=== PATIENT | male | born 1965 | race Caucasian/White ===

== ENCOUNTER → 2017-02-25 | Outpatient (CLI) | payer OTHER ==
[~2017-02-25] MED LIST: HYDR25TA5 PO; TNR25 PO
[2017-02-25 09:41] LABS: BASO % 1.1 %; BASO ABS # 0.07 K/uL (0-0.2); COMPLETE YES; EOS % 4.3 %; HEMATOCRIT 44.4 % (42-52); IG% 0.5 %; LYMPH % 33.8 %; LYMPH ABS # 2.13 K/uL (1.2-3.4); MEAN CELL VOLUME 88.3 fL (80-100); MEAN CORPUSCULAR HEMOGLOBIN 30.8 pg (25-34); MEAN CORPUSCULAR HGB CONC 34.9 g/dl (32-36); MONO % 9.2 %; NEUT % 51.1 %; PLATELET COUNT 238 K/uL (130-400); RED BLOOD COUNT 5.03 M/uL (4.7-6.1); WHITE BLOOD COUNT 6.31 K/uL (4.8-10.8)
[2017-02-25 10:03] LABS: ALT/SGPT 37 U/L (12-78); AST/SGOT 18 U/L (15-37); BLOOD UREA NITROGEN 14 mg/dl (7-18); BUN/CREATININE RATIO 17.7 (10-20); CALCIUM 8.9 mg/dl (8.5-10.1); CARBON DIOXIDE 32 mmol/L (21-32); CHLORIDE 106 mmol/L (98-107); CREATININE 0.81 mg/dl (0.60-1.40); GLUCOSE 123 mg/dl (70-99); POTASSIUM 3.7 mmol/L (3.5-5.1); SODIUM 141 mmol/L (136-145)
[2017-02-25 10:06] LABS: ALB/GLOB RATIO 1.3 (0.9-2); ALKALINE PHOSPHATASE 56 U/L (45-117); CHOLESTEROL 206 mg/dl (0-200); CHOLESTEROL/HDL RATIO 4.4; HDL CHOLESTEROL 47 mg/dl; LDL CHOLESTEROL CALCULATED 134 mg/dl; TRIGLYCERIDES 125 mg/dl (0-150); VERY LOW DENSITY LIPOPROT CALC 25 mg/dl
== END | disposition home or self-care (01) ==
LOC: C.LAB1850 07:41
PROVIDERS: ATTEND Physician Assistant
DX: Z00.00 Encounter for general adult medical examination without abnormal findings (principal); I10 Essential (primary) hypertension

== ENCOUNTER → 2017-08-19 | Outpatient (CLI) | payer OTHER ==
[2017-08-19 09:35] LABS: HEMATOCRIT 41.7 % (42-52); MEAN CORPUSCULAR HEMOGLOBIN 30.9 pg (25-34); MEAN PLATELET VOLUME 9.7 fL (7.4-10.4); PLATELET COUNT 202 K/uL (130-400); RED CELL DISTRIBUTION WIDTH CV 12.3 % (11.5-14.5); RED CELL DISTRIBUTION WIDTH SD 38.3 fL (36.4-46.3); WHITE BLOOD COUNT 7.19 K/uL (4.8-10.8)
[2017-08-19 10:23] LABS: ALBUMIN 3.8 gm/dl (3.4-5.0); ALT/SGPT 27 U/L (12-78); AST/SGOT 11 U/L (15-37); BLOOD UREA NITROGEN 14 mg/dl (7-18); CALCIUM 8.8 mg/dl (8.5-10.1); CARBON DIOXIDE 29 mmol/L (21-32); CHOLESTEROL 184 mg/dl (0-200); CREATININE 0.69 mg/dl (0.60-1.40); GLUCOSE 112 mg/dl (70-99); POTASSIUM 3.3 mmol/L (3.5-5.1); SODIUM 139 mmol/L (136-145)
[2017-08-19 10:24] LABS: ALKALINE PHOSPHATASE 54 U/L (45-117); LDL CHOLESTEROL CALCULATED 115 mg/dl; TOTAL PROTEIN 6.5 gm/dl (6.4-8.2)
[2017-08-19 10:36] LABS: HEMOGLOBIN A1C 5.3 % (4.5-5.6)
== END | disposition home or self-care (01) ==
LOC: C.LAB1850 08:05
PROVIDERS: ATTEND Internal Medicine
DX: Z00.00 Encounter for general adult medical examination without abnormal findings (principal); I10 Essential (primary) hypertension; R73.03 Prediabetes

== ENCOUNTER → 2017-10-25 | Day surgery (SDC) | payer OTHER ==
[2017-10-13 08:46] VITALS: Ht 182.9 cm; Wt 102.3 kg
[~2017-10-25] VITALS: Ht 182.9 cm; Wt 102.3 kg
[~2017-10-25] MED LIST changes: +LIDOCAINE HCL 2% 2 ML VIAL (20MG/ML) ONE; +MIDAZOLAM HCL 1 MG/ML 2ML VIAL ONE; +ONDANSETRON INJ 2 MG/ML 2 ML VIAL ONE; +PROPOFOL IV EMULSION 10 MG/ML 20 ML VIAL ONE; +SODIUM CHLORIDE 0.9% 500ML 500 ML IV ONE
--- NOTE | 2017-10-25 08:36 | Endo History and Physical ---
History & Physical Date of Service: October 25, 2017. Chief Complaint: Screening, Hx of Polyps Referring Physician: Radha Pearce History of Present Illness 52 yo CM who presents for colonoscopy secondary to history of colon polyps. Past Medical History Hypertension Past Surgical History Hx Cardiac Surgery: No Hx Internal Defibrillator: No Hx Pacemaker: No Hx Abdominal Surgery: No Hx of Implantable Prosthesis: No Hx Cancer Surgery: No Hx Thoracic Surgery: No Hx Orthopedic: No Hx Urinary Tract Surgery: No Social History Smoking Status: Former Smoker Hx Substance Use: No Hx Alcohol Use: Yes (A FEW BEERS A WEEK) Allergies Coded Allergies: No Known Allergies (Unverified , 10/25/17) Current Medications Reported Home Medications Medications Dose Route/Sig Max Daily Dose Days Date Category Hydrochlorothiazide 25 Mg Tab 25 Mg PO DAILY 11/01/14 Reported Atenolol 25 Mg Tab 25 Mg PO DAILY 11/01/14 Reported Vital Signs Weight (Kilograms): 102.27 Height (Feet): 6 Height (Inches): 0 Date Time Temp Pulse Resp B/P (MAP) Pulse Ox O2 Delivery O2 Flow Rate FiO2 10/25/17 08:09 36.7 76 20 161/112 (128) 97 Room Air Physical Exam General Appearance: WD/WN, no apparent distress Respiratory/Chest: Auscultation: breath sounds normal Cardiovascular: Heart Auscultation: RRR Abdomen: Bowel Sounds: normal Inspection & Palpation: soft, non-distended, no tenderness, guarding & rebound Assessment and Plan Assessment: 52 yo CM who presents for colonoscopy secondary to history of colon polyps. Plan: Proceed with colonoscopy.
--- NOTE | 2017-10-25 08:59 | GI REPORT ---
Patient Name: Zachary Ramos Procedure Date: 10/25/2017 8:42 AM Date of : 1965 Admit Type: Outpatient Age: 52 Gender: Male Attending MD: Drew Hearn DO Procedure: Colonoscopy Providers: Drew Hearn DO Referring MD: Radha Pearce Indications: High risk colon cancer surveillance: Personal history of colonic polyps Medicines: Monitored Anesthesia Care Complications: No immediate complications. Estimated Blood Loss: Estimated blood loss: none. Procedure: Pre-Anesthesia Assessment: - Prior to the procedure, a History and Physical was performed, and patient medications and allergies were reviewed. The patient's tolerance of previous anesthesia was also reviewed. The risks and benefits of the procedure and the sedation options and risks were discussed with the patient. All questions were answered, and informed consent was obtained. Prior Anticoagulants: The patient has taken no previous anticoagulant or antiplatelet agents. ASA Grade Assessment: II - A patient with mild systemic disease. After reviewing the risks and benefits, the patient was deemed in satisfactory condition to undergo the procedure. After I obtained informed consent, the scope was passed under direct vision. Throughout the procedure, the patient's blood pressure, pulse, and oxygen saturations were monitored continuously. The Scope was introduced through the anus and advanced to the terminal ileum. The patient tolerated the procedure well. The quality of the bowel preparation was good. The quality of the bowel preparation was good. The terminal ileum, ileocecal valve, appendiceal orifice, and rectum were photographed. Findings: The perianal and digital rectal examinations were normal. Non-bleeding internal hemorrhoids were found during retroflexion. The hemorrhoids were small. Impression: - Non-bleeding internal hemorrhoids. - No specimens collected. Recommendation: - Resume previous diet. - Continue present medications. - Repeat colonoscopy for surveillance based on pathology results. - Return to primary care physician as previously scheduled. Drew Hearn DO 10/25/2017 8:58:29 AM This report has been signed electronically. Note Initiated On: 10/25/2017 8:42 AM Number of Addenda: 1 I attest to the content of the Intraoperative Record and orders documented therein, exceptions below Addendum Number: 1 Addendum Date: 10/25/2017 9:01:32 AM No specimens were collected during this procedure, and therefore, no pathology is pending. Repeat colonoscopy in 5 years, due to history of colon polyps. Drew Hearn, DO 10/25/2017 9:02:28 AM This report has been signed electronically. {[id number]}
--- NOTE | 2017-10-25 09:01 | Discharge Instructions ---
Endoscopy Patient Instructions Date / Procedure(s) Performed October 25, 2017. Colonoscopy Allergy Information Coded Allergies: No Known Allergies (Unverified , 10/25/17) Discharge Date / Findings October 25, 2017. Internal hemorrhoids Medication Instructions OK to resume all medications today as prescribed Reported Home Medications Medications Dose Route/Sig Max Daily Dose Days Date Category Hydrochlorothiazide 25 Mg Tab 25 Mg PO DAILY 11/01/14 Reported Atenolol 25 Mg Tab 25 Mg PO DAILY 11/01/14 Reported Provider Instructions Activity Restrictions - No exercising or heavy lifting for 24 hours. - Do not drink alcohol the day of the procedure. - Do not drive a car or operate machinery until the day after the procedure. - Do not make any important decisions or sign important papers in 24 hours after the procedure. Following Day: - Return to full activity which may include returning to work/school. Diet Start your diet with liquids and light foods (jello, soup, juice, toast). Then eat your usual diet if not nauseated. Treatment For Common After Affects For mild abdominal pain, bloating, or excessive gas: - Rest - Eat lightly - Lie on right side Follow-Up Information Follow-up with Radha Pearce as scheduled Anesthesia Information What You Should Know You have had a procedure that required some medicine to reduce anxiety and discomfort. This treatment is called moderate sedation. After receiving the treatment, you may be sleepy, but you will be able to breathe on your own. The effects of the treatment may last for several hours. Follow these instructions along with Activity/Diet recommendations noted above: * Do NOT do anything where dizziness or clumsiness would be dangerous. * Rest quietly at home today, then you can be up and about tomorrow. * Have a responsible person stay with you the rest of today. * You may have had an I.V. today. If so, you may take the dressing off later today. Recommendations Call your doctor if: * Trouble breathing * Continuous vomiting for more than 24 hours * Temperature above 101 degrees * Severe abdominal pain or bloating * Pain not relieved by pain medicine ordered * There is increased drainage or redness from any incision * A large amount of rectal bleeding greater than 2-3 tablespoons. (If you had a polyp/s removed or have hemorrhoids, a small amount of blood - from the rectum is to be expected.) * You have any unanswered questions or concerns. IN THE EVENT OF A SERIOUS EMERGENCY, GO TO THE NEAREST EMERGENCY ROOM Your discharge instructions were prepared by provider Drew Hearn. Patient Instructions Signature Page Zachary Ramos Patient (or Guardian) Signature/Date: I have read and understand the instructions given to me by my caregivers. Caregiver/RN/Doctor Signature/Date: The above-named patient and/or guardian has received patient instructions on this date. + Original Patient Signature Page (only) stays with chart. Please make copy for patient.
--- NOTE | 2017-10-25 09:12 | Anesthesiology Progress Note ---
Anesthesia Post Op Note Date & Time October 25, 2017 at 09:12 Vital Signs Pain Intensity: 0 Vital Signs Past 12 Hours Date Time Temp Pulse Resp B/P (MAP) Pulse Ox O2 Delivery O2 Flow Rate FiO2 10/25/17 09:00 36.7 0 16 135/76 (95) 96 Room Air 10/25/17 08:09 36.7 76 20 161/112 (128) 97 Room Air Notes Mental Status: alert / awake / arousable, participated in evaluation Pt Amnestic to Procedure: Yes Nausea / Vomiting: adequately controlled Pain: adequately controlled Airway Patency, RR, SpO2: stable & adequate BP & HR: stable & adequate Hydration State: stable & adequate Anesthetic Complications: no major complications apparent
[2017-10-25 09:32] VITALS: BP 121/92; PULSE 63; O2SAT 98
== END | disposition home or self-care (01) ==
LOC: C.GI 07:37
PROVIDERS: ATTEND Internal Medicine
DX: Z12.11 Encounter for screening for malignant neoplasm of colon (principal); K64.8 Other hemorrhoids; I10 Essential (primary) hypertension; Z86.010 Personal history of colon polyps; Z87.891 Personal history of nicotine dependence

== ENCOUNTER 2019-08-27 22:54 | Observation (INO) ==
--- NOTE | 2019-08-27 23:18 | Emergency Department Note ---
ED Provider Note Name: SHANNAN KRISHNA Age: 54 Sex: M Arrives Via: Walk-In Informant: Patient, Pt Chart ED Provider: Kelton Garcia MD Chief Complaint: Shortness of breath Impression: Acute Congestive Heart Failure Elevated Troponin Medical Decision Makin yr old male with history HTN and DLP with worsening shortness of breath on exertion and with laying flat. Exam with relatively clear lungs though irregular cardiac rate found to be bigemeny with frequent PVCs. HTN on arrival as well. Already trying outpatient Lasix without improvement. No cardiac history. Did have viral illness in June. CXR with considerable cardiomegaly with developing pulmonary edema though patient in no distress and not hypoxic while sitting up in bed. Labs with positive trop though not severely elevated and no recent chest pain. Given ASA 324mg PO and noted BP trending down while here. Hospitalist consulted and will defer further anticoagulation and management to them given patient stability at this time. Patient comfortable with plan. While can't rule out ACS, and he may just have HTN heart failure, he has recently had viral illness thus post viral myocarditis a possibility. Prior Medical Record and Triage/Nursing Notes reviewed by Me Patient record and recent visit notes Differentials:Reactive airway disease, pneumonia, pneumothorax, COPD, CHF, infections, cardiac ischemia, pulmonary embolism, musculoskeletal, gastrointestinal, as well as other pathologies. Vital Signs: reviewed and remarkable for HTN Interventions: saline lock, asa 324mg PO Labs:Reviewed and remarkable for +troponin Imaging:X ray results are stated below per my interpretation: Chest: 1 view: Cardiomegaly with developing pulmonary edema EKG:Per My Interpretation: Indication Shortness of breath: Bigemeny 91 bpm with qtc 546, multiple PVCs, no clear ischemia. No previous for comparison Cardiac/Tele Monitoring: Cardiac Monitoring: An Order was placed for continuous cardiac monitoring. The monitor shows a rate of 90 with a bigemny rhythm. Consults:Dr Quiana MAGANA Hospitalist Plan: Disposition:Hospitalization. Condition: Good Blood pressure:Elevated - Referred to Hospitalist History of Present Illness:54 / M arrives for evaluation of shortness of breath. Patient notes for last few weeks worsening shortness of breath. The last week has been increasingly difficult. He notes that with exertion he becomes quite dyspneic and furthermore feels like he can not breath while laying flat. Sitting up and relaxing has resolution of symptoms. He notes associated abdominal fullness and increased belching the last few days as well. Denies any chest pain, fevers, syncope, headache, neck pain, rashes, leg swelling, calf pain, travel, abdominal pain, nausea, vomiting, nor other symptoms. Was seen by PCP 2 days ago and started on Lasix without improvement in symptoms. No history of cardiac disease in him or parents though grandfather with CAD. Patient with RADHA, DLP, HTN. ROS: See above HPI for pertinent positives & negatives. A total of 10 systems reviewed and were otherwise negative. 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 EYES: No scleral icterus, unremarkable pupils. ENT: Mucous membranes moist, no nasal congestion. NECK: No masses appreciated, nomeningismus, trachea is midline. RESPIRATORY: No dyspnea. Clear to auscultation and equal bilaterally. No wheeze, no rhonchi. CARDIOVASCULAR: Regular rate and rhythm.No murmurs, rubs, gallops appreciated. GASTROINTESTINAL: Abdomen soft, non-tender, no peritonitis.Bowel sounds positive.No masses appreciated. BACK: No midline tenderness, no CVA tenderness EXTREMITIES: Normal motion all extremities, no cyanosis, no edema. NEUROLOGIC: Alert and oriented, no acute motor or sensory deficits, no focal weakness, cranial nerves grossly intact. SKIN: No rash, no jaundice, no diaphoresis. PSYCH: Appropriate GCS: 15 ED Course: Times/Reassessments: Stable, felling well while in bed without symptoms. 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 Feels Safe at Home: Yes Smoking Status: Never smoker Hx Alcohol Use: Yes Dental Care, Regularly: Yes Results & Data Vital Signs Vital Signs - 24 hr 08/27/19 22:59 08/27/19 23:19 08/27/19 23:55 Temperature 36.6 C Temperature Source Oral Pulse Rate 94 H Pulse Rate [Bilateral Apical] 93 H 73 Respiratory Rate 18 20 18 Respiratory Effort / Characteristics Non-Labored Respiratory Depth Normal Blood Pressure 189/132 H Blood Pressure [Left Arm] 151/106 H 154/113 H Blood Pressure Mean 151 Blood Pressure Mean [Left Arm] 121 126 Pulse Oximetry 95 96 95 Oxygen Delivery Method Room Air Room Air Fraction of Inspired Oxygen 96 Sepsis Recent Fever Within 48 Hours No Sepsis New/Unexplained Change in Mental Status No Sepsis Action Taken by Nursing No Action Required 08/28/19 00:16 Temperature Temperature Source Pulse Rate Pulse Rate [Bilateral Apical] 90 Respiratory Rate 20 Respiratory Effort / Characteristics Respiratory Depth Blood Pressure Blood Pressure [Left Arm] 157/116 H Blood Pressure Mean Blood Pressure Mean [Left Arm] 129 Pulse Oximetry 93 Oxygen Delivery Method Room Air Fraction of Inspired Oxygen Sepsis Recent Fever Within 48 Hours Sepsis New/Unexplained Change in Mental Status Sepsis Action Taken by Nursing Laboratory Data Result diagrams: 08/27/19 23:10 08/27/19 23:10 Lab Results 08/27/19 08/27/19 08/27/19 Range/Units 23:10 23:10 23:10 WBC 8.91 (4.8-10.8) K/uL RBC 5.44 (4.7-6.1) M/uL Hgb 16.5 (14.0-18.0) g/dL Hct 48.4 (42-52) % MCV 89.0 (80-100) fL MCH 30.3 (25-34) pg MCHC 34.1 (32-36) g/dL RDW Std Deviation 42.0 (36.4-46.3) fL RDW Coeff of Jonathan 13.0 (11.5-14.5) % Plt Count 268 (130-400) K/uL MPV 10.4 (7.4-10.4) fL Immature Gran % (Auto) 0.2 % Neut % (Auto) 53.2 % Lymph % (Auto) 34.3 % [place] % (Auto) 9.8 % Eos % (Auto) 2.2 % Baso % (Auto) 0.3 % Immature Gran # (Auto) 0.02 (0.00-0.02) K/uL Neut # (Auto) 4.73 (1.4-6.5) K/uL Lymph # (Auto) 3.06 (1.2-3.4) K/uL [place] # (Auto) 0.87 H (0.11-0.59) K/uL Eos # (Auto) 0.20 (0-0.5) K/uL Baso # (Auto) 0.03 (0-0.2) K/uL PT 12.5 H (9.0-12.0) Seconds INR 1.2 H (0.9-1.1) APTT 27.0 (21.0-31.0) Seconds PTT Ratio 1.0 Sodium 141 (136-145) mmol/L Potassium 3.8 (3.5-5.1) mmol/L Chloride 109 H (98-107) mmol/L Carbon Dioxide 25 (21-32) mmol/L Anion Gap 7.0 (3-11) BUN 17 (7-18) mg/dl Creatinine 0.94 (0.6-1.4) mg/dl Est Cr Clr Drug Dosing 106.8 ml/min Est GFR ( Amer) 105.4 Est GFR (Non-Af Amer) 90.9 BUN/Creatinine Ratio 18.5 (10-20) Glucose 119 H (70-99) mg/dl Calcium 9.3 (8.5-10.1) mg/dl Magnesium 2.0 (1.8-2.4) mg/dl Total Bilirubin 1.3 H (0.2-1) mg/dl Direct Bilirubin 0.3 H (0-0.2) mg/dl AST 32 (15-37) U/L ALT 52 (12-78) U/L Alkaline Phosphatase 43 L (45-117) U/L Troponin I 0.050 H* (0-0.045) ng/ml NT-Pro-B Natriuret Pep 3646 H (0-900) pg/ml Total Protein 6.6 (6.4-8.2) gm/dl Albumin 3.8 (3.4-5.0) gm/dl Administered Medications Discontinued Medications Aspirin (Aspirin) 324 mg PO NOW STA Stop: 08/28/19 00:12 Last Admin: 08/28/19 00:16 Dose: 324 mg Documented by: [id number] Discharge Plan Visit Data Chief Complaint: Shortness of Breath/Dyspnea Stated Complaint: HARD TIME BREATHING WHEN LAYING DOWN ED Provider: Kelton Garcia Discharge Problem: Acute congestive heart failure, Elevated troponin Forms Stand Alone Forms: My [facility] Prescriptions Prescriptions: No Action omeprazole 20 mg capsule,delayed release(DR/EC) 20 mg PO DAILY Qty: 30 RF: 1 albuterol sulfate 90 mcg/actuation HFA aerosol inhaler 1 puffs INH QID PRN (Reason: shortness of breath or wheezing) Qty: 18 RF: 0 hydrochlorothiazide 25 mg tablet 25 mg PO DAILY Qty: 90 RF: 1 Hold Instructions: On Lasix for 5 days furosemide 40 mg tablet 40 mg PO DAILY Qty: 5 RF: 0 atenolol 25 mg tablet 25 mg PO DAILY Qty: 30 RF: 0 psyllium Powder 1 tsp PO DAILY RF: 0 Discharge Problem: Acute congestive heart failure Qualifiers: Heart failure type: systolic Qualified Code(s): I50.21 - Acute systolic (con gestive) heart failure
[2019-08-27 23:31] LABS: Basophils # (auto) 0.03 K/uL (0-0.2); Basophils % (auto) 0.3 %; Eosinophils % (auto) 2.2 %; Hematocrit (blood only) 48.4 % (42-52); Hemoglobin 16.5 g/dL (14.0-18.0); Immature Granulocytes # (auto) 0.02 K/uL (0.00-0.02); Immature Granulocytes % (auto) 0.2 %; Lymphocytes # (auto) 3.06 K/uL (1.2-3.4); Lymphocytes % (auto) 34.3 %; Mean Corpuscular Hemoglobin 30.3 pg (25-34); Mean Corpuscular Hgb Conc 34.1 g/dL (32-36); Mean Platelet Volume 10.4 fL (7.4-10.4); Monocytes # (auto) 0.87 K/uL (0.11-0.59); Monocytes % (auto) 9.8 %; Neutrophils # (auto) 4.73 K/uL (1.4-6.5); Neutrophils % (auto) 53.2 %; Platelet Count 268 K/uL (130-400); Red Blood Count 5.44 M/uL (4.7-6.1); White Blood Count 8.91 K/uL (4.8-10.8)
[2019-08-27 23:53] LABS: Albumin Level 3.8 gm/dl (3.4-5.0); BUN Creatinine Ratio 18.5 (10-20); Bilirubin Direct 0.3 mg/dl (0-0.2); Calcium 9.3 mg/dl (8.5-10.1); Creatinine Clr Calc Pharmacy 106.8 ml/min; Est GFR (African American) 105.4; Est GFR (Non-African American) 90.9; Potassium 3.8 mmol/L (3.5-5.1)
[2019-08-28 00:06] LABS: Bilirubin,Total 1.3 mg/dl (0.2-1); Total Protein 6.6 gm/dl (6.4-8.2); Troponin I 0.05 ng/ml (0-0.045)
[2019-08-28] MEDS ORDERED: ASPIRIN CHEW 324 MG PO STA (00:11)
[2019-08-28 00:27] LABS: INR 1.2 (0.9-1.1); Prothrombin Time 12.5 Seconds (9.0-12.0)
--- NOTE | 2019-08-28 01:18 | History & Physical Report ---
Date of Service August 28, 2019 Assessment & Plan (1) SOB (shortness of breath): 54 yo M with PMH dyslipidemia, HTN, likely RADHA, GERD presents with concerns of worsening SOB and failed outpt tx with PO Lasix found to be mildly volume overloaded on CXR. SOB likely 2/2 Acute CHF -CXR: Cardiomegaly w/ mild interstitial pulmonary edema and trace bilateral pleural effusions. Compared to 08/24, appears mildly worse. -BNP 3646 on admission -initial trop 0.05. Likely 2/2 type II OK, will cont trend x2 -failed outpt tx with Lasix 40mg -will give spot IV Lasix 40 mg x1. Can adjust dosage based on clinical exam and ECHO results moving forward -ECHO Pending -supplemental O2 as needed. Has been sating well on RA -daily weights, measure I's/O's HTN -cont home atenolol. Holding HCTZ for now as we monitor BP moving forward with Lasix History of irregular heartbeat/abnormal EKG -EKG on admission concerning for bigeminy, multiple PVCs -has followed with Dr. Henriquez in the past -Stress ECHO from 2003 negative for exercise-induced myocardial ischemia -PCP made referral to cardiology as outpt, but given pt is admitted a Cardiology consult appreciated ?RADHA -h/o Snoring -PCP ordered Home sleep study and Sleep medicine referral made FEN/GI: HH Diet DVT Prophylaxis: Lovenox SQ Conditional Code: DNI only Dispo: Med Tele History of Present Illness Chief Complaint: sob, FITCH Primary Care Provider: BRIGITTE Queen 54 yo M with PMH dyslipidemia, HTN, likely RADHA, GERD presents to [facility] with concerns of worsening SOB. Initially started a couple of weeks ago, but worse this past week. Last episode of SOB back in July 2019 and CXR revealed cardiomegaly, atelectasis, and developing CHF. 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 Sxs improved quickly with with steroid taper, and thus SOB was attributed more so to chemical inhalation. PCP visit on 08/25/19 for increased SOB with exertion and being unable to sleep flat at night that required him to sleep in recliner. Sometimes waking up gasping and SOB. CXR at this visit indicated mild interstitial pulmonary edema and trace bilateral pleural effusions. Decision was made to start pt on Lasix 40mg daily, which he took for 2 days. Pt notes no real increase in urine output despite starting Lasix and ongoing SOB that is not improved. Tonight, he continued to have difficulty sleeping so he decided to come into ER. Associated feeling of abdominal fullness and belching, but pt otherwise denies CP, diaphoresis, palpitations, syncope or near syncope, edema, cough, fever, chills, N/V/D, recent travel, lightheadedness/dizziness, urinary sxs . Pt notes his diet is not great with a lot of red meats and potatoes, does not really watch his sodium. Pt with no other acute concerns or complaints. CXR: Cardiomegaly w/ mild interstitial pulmonary edema and trace bilateral pleural effusions. Compared to 08/24, appears mildly worse. EKG: Bigemeny, PVCs. No acute ischemia Pertinent Labs: Trop 0.05, BNP 3646 ER Course: ASA 324 mg Family Hx: GF, Brother, Sister with 'heart disease' Social Hx: Denies tobacco use. Alcohol- ~10 beers/week. No illicit drug use Allergies Allergy/AdvReac Type Severity Reaction Status Date / Time No Known Allergies Allergy Unverified 08/27/19 23:35 Home Medications Home Medications Medication Instructions Recorded Confirmed Type omeprazole 20 mg capsule,delayed 20 mg PO DAILY #30 cap 07/24/19 08/29/19 Rx release psyllium 1 tsp PO DAILY 08/27/19 08/29/19 History lisinopril [Zestril] 5 mg PO QAM #30 tab 08/28/19 08/29/19 Rx metoprolol succinate 50 mg PO QAM #30 tab 08/28/19 08/29/19 Rx furosemide 40 mg tablet 40 mg PO DAILY PRN #30 tab 08/29/19 Rx Past Med/Surg History Medical History (Updated 08/29/19 @ 00:02 by Background Ariane) Dyslipidemia (Chronic) GERD (gastroesophageal reflux disease) Hypertension (Chronic) Surgical History No history of previous surgery Family History Brother Diabetes Other Colorectal cancer Denies family history of Ovarian cancer Prostate cancer Myocardial infarction Breast cancer Social History Preferred Language: Omani Communication Ability: Effective Visual Impairment: No Limitations Hearing Ability: Normal Beliefs That Will Affect Care: None marital status: Current Living Situation: Spouse 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 occupational status: 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 Feels Safe at Home: Yes Smoking Status: Never smoker Hx Alcohol Use: Yes Alcohol type: beer Hx Substance Use: No Dental Care, Regularly: Yes Review of Systems Review of Systems: All systems reviewed & are unremarkable except as noted in HPI & below Physical Exam Constitutional: WD/WN, vitals as above no acute distress Eyes: PERRL, conjunctivae normal, anicteric sclerae ENMT: external ear and nose normal, oropharynx normal Respiratory: normal respiratory effort; no respiratory distress and no labored breathing Lungs grossly CTAB with very slight crackles in mid-lower lung zones Cardiovascular: RRR, no murmur, no edema Gastrointestinal (Abdomen): normal bowel sounds, soft, nontender, no hepatosplenomegaly Skin: no rashes, warm and dry Psychiatric: A+Ox3, euthymic affect Results & Data Vital Signs (Past 12 Hours) Vital Signs Temp Pulse Pulse Resp BP BP Pulse Ox 08/28/19 00:16 90 20 157/116 H 93 08/27/19 23:55 73 18 154/113 H 95 08/27/19 23:19 93 H 20 151/106 H 96 08/27/19 22:59 36.6 C 94 H 18 189/132 H 95 Laboratory Results Laboratory Results - last 24 hr 08/27/19 08/27/19 08/27/19 23:10 23:10 23:10 WBC 8.91 RBC 5.44 Hgb 16.5 Hct 48.4 MCV 89.0 MCH 30.3 MCHC 34.1 RDW Std Deviation 42.0 RDW Coeff of Jonathan 13.0 Plt Count 268 MPV 10.4 Immature Gran % (Auto) 0.2 Neut % (Auto) 53.2 Lymph % (Auto) 34.3 [place] % (Auto) 9.8 Eos % (Auto) 2.2 Baso % (Auto) 0.3 Immature Gran # (Auto) 0.02 Neut # (Auto) 4.73 Lymph # (Auto) 3.06 [place] # (Auto) 0.87 H Eos # (Auto) 0.20 Baso # (Auto) 0.03 PT 12.5 H INR 1.2 H APTT 27.0 PTT Ratio 1.0 Sodium 141 Potassium 3.8 Chloride 109 H Carbon Dioxide 25 Anion Gap 7.0 BUN 17 Creatinine 0.94 Est Cr Clr Drug Dosing 106.8 Est GFR ( Amer) 105.4 Est GFR (Non-Af Amer) 90.9 BUN/Creatinine Ratio 18.5 Glucose 119 H Calcium 9.3 Magnesium 2.0 Total Bilirubin 1.3 H Direct Bilirubin 0.3 H AST 32 ALT 52 Alkaline Phosphatase 43 L Troponin I 0.050 H* NT-Pro-B Natriuret Pep 3646 H Total Protein 6.6 Albumin 3.8 Supervising Physician Co-Signing Physician Notes Attending addendum: I have physically seen this patient, have supervised the medical residents activities, and agree with the H&P unless as otherwise noted. Assessment and Plan: NSTEMI/CHF exacerbation/hypertension/cardiomyopathy- The patient will be admitted to telemetry for serial cardiac enzymes, serial EKG's, cardiac rhythm monitoring and a 2-D echocardiogram with Dopplers. Likely type II OK supply demand mismatch. Hold oral Lasix, and give Lasix 40 mg IV x1 tonight. Nasal cannula oxygen, titrate to keep pulse ox 94 to 95%. Continue atenolol. Hold HCTZ Serial BMP and magnesium levels. Consult cardiology. Remainder of orders and notations as noted. Resident Activity Tracking Resident Involvement: Resident Care Provided Care Provided: Adult [facility]
[2019-08-28] MEDS ORDERED: FUROSEMIDE 40 MG/4 ML VIAL IV STA (01:26)
[2019-08-28] MEDS ORDERED: ALBUTEROL HFA 8 GM INHALER INH PRN (02:53)
[2019-08-28] MEDS ORDERED: NITROGLYCERIN SL 0.4 MG/TAB TAB SL PRN (02:53)
[2019-08-28] MEDS ORDERED: ACETAMINOPHEN 325 MG TAB PO PRN (02:53)
[2019-08-28] MEDS ORDERED: ALUMINUM/MAGNESIUM SUSP 30 ML UDC PO PRN (02:53)
[2019-08-28 06:21] LABS: Basophils # (auto) 0.05 K/uL (0-0.2); Basophils % (auto) 0.6 %; Eosinophils # (auto) 0.14 K/uL (0-0.5); Eosinophils % (auto) 1.6 %; Hematocrit (blood only) 47.7 % (42-52); Hemoglobin 16.1 g/dL (14.0-18.0); Immature Granulocytes # (auto) 0.02 K/uL (0.00-0.02); Immature Granulocytes % (auto) 0.2 %; Lymphocytes # (auto) 2.57 K/uL (1.2-3.4); Lymphocytes % (auto) 28.5 %; Mean Corpuscular Hemoglobin 29.8 pg (25-34); Mean Corpuscular Hgb Conc 33.8 g/dL (32-36); Mean Corpuscular Volume 88.3 fL (80-100); Mean Platelet Volume 10.4 fL (7.4-10.4); Monocytes # (auto) 0.99 K/uL (0.11-0.59); Neutrophils # (auto) 5.26 K/uL (1.4-6.5); Neutrophils % (auto) 58.1 %; Platelet Count 254 K/uL (130-400); RDW Standard Deviation 41.7 fL (36.4-46.3); White Blood Count 9.03 K/uL (4.8-10.8)
--- NOTE | 2019-08-28 07:01 | XRay Report ---
XR chest 1V portable CLINICAL HISTORY: 54 years-old Male presenting with shortness of breath. TECHNIQUE: Portable upright AP view of the chest was obtained. COMPARISON: 08/25/2019. FINDINGS: Cardiopericardial silhouette moderately enlarged. Pulmonary vasculature mildly prominent. Stable to s light interval decrease in interstitial prominence. Trace pleural effusions may be present. Minimal b ibasilar opacity. No pneumothorax. Degenerative changes of the thoracic spine. Upper abdomen normal. IMPRESSION: 1. Cardiomegaly with mild volume overload. Decreasing congestive change. 2. Possible trace bilateral pleural effusions and minimal bibasilar atelectasis. ACT 112: Negative or not required by law. Electronically signed by: Maksim Flanagan M.D. 08/28/2019 6:59 AM
[2019-08-28 07:02] LABS: BUN Creatinine Ratio 16.1 (10-20); Calcium 8.7 mg/dl (8.5-10.1); Creatinine Clr Calc Pharmacy 110.5 ml/min; Est GFR (African American) 109.6; Est GFR (Non-African American) 94.5; Potassium 3.8 mmol/L (3.5-5.1)
[2019-08-28 07:17] LABS: Troponin I 0.051 ng/ml (0-0.045)
[2019-08-28] MEDS ORDERED: ENOXAPARIN INJ 40 MG/0.4 ML SYR SQ SCH (09:00)
[2019-08-28] MEDS ORDERED: ATENOLOL 25 MG TABLET PO SCH (09:00)
[2019-08-28] MEDS ORDERED: PANTOprazole 40 MG TAB PO SCH (09:00)
[2019-08-28] MEDS ORDERED: PSYLLIUM 58.6% POWDER PACKET PO SCH (09:00)
--- NOTE | 2019-08-28 10:18 | XCELERA ---
[id number] \\[id number]\[id number]_[id number]}___[id number]
--- NOTE | 2019-08-28 10:39 | Cardiology Consultation ---
Date of Consultation August 28, 2019 Assessment & Plan (1) Acute congestive heart failure: His symptoms resolution are consistent with pulmonary edema. It is very likely that his cough and breathing difficulty earlier this month were also related to pulmonary vascular congestion. He had elevated N terminal proBNP and evidence of edema on x-ray. He has a dilated cardiomyopathy with both reduced systolic and diastolic function. He responded well to a single dose of intravenous diuretic. His lung examination is benign currently in his symptoms have resolved. He will require continued use of diuretic on an outpatient basis as well as intensification of his medical therapy for his reduced LV function. (2) Elevated troponin: Current elevation in his biomarkers are more consistent with his cardiomyopathy rather than acute coronary syndrome. He has not had symptoms or objective findings of an acute coronary syndrome. (3) Cardiomyopathy: Unknown etiology. This is likely responsible for his recent symptoms. He does not have symptoms of chest pain or angina with activity which makes coronary disease a less likely etiology. However, in his demographic this is still the most likely cause reduced systolic function. He could have occult sleep apnea. It could be related to his frequent ventricular ectopy. (4) Hypertension: He likely has suboptimal control of his blood pressure. He checks it regularly and would likely benefit from intensification of his medical regimen. This will be accomplished primarily to address his cardiomyopathy. We will switch his atenolol to metoprolol succinate and add an LISA-inhibitor. He will be continued on furosemide and his hydrochlorothiazide will be discontinued. (5) Left bundle branch block: He had 1 EKG performed on 07/24/2019. There is no other EKG in his record. He had left bundle branch block at that time. Occasionally this is responsible for reduced LV function by think this is most likely related to an underlying cardiomyopathy. 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 In fact, he states that he was previously on quinidine as a child. He did have frequent PVCs on his presenting EKG. This could be the etiology of his cardiomyopathy if he has frequent PVCs. Certainly frequencies over 20 percent a 24 hour. Have been associated with reduced LV function. Hopefully with intensification of his medical therapy we can see some reduction in his PVCs. He will undergo an ischemic evaluation at some point as well. Catheter based therapy remains an option this is felt to be a possible ideology. Unfortunately, the morphology of his PVCs does not suggest an outflow tract source and is more consistent with an apical source of PVCs. History of Present Illness Reason for Consultation: Dyspnea Requesting Physician: Refugio Attending Physician: Digna Blackwell MD History of Present Illness The patient is a 54-year-old gentleman without a known history of significant cardiac disease who has been experiencing symptoms dyspnea for several weeks. 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 He was evaluated that time and placed on steroid medication as well as inhalers. Patient did report some transient improvement in his symptoms but later had worsening of both a cough and breathing difficulty. His shortness of breath was manifest by dyspnea on exertion as well as symptoms of orthopnea and paroxysmal nocturnal dyspnea. Patient states that he has been sleeping somewhat upright for several years for comfort reasons, but lately has been waking up suddenly with breathing trouble. This appears to be fairly random in nature. Based on an outpatient evaluation including a chest x-ray he was prescribed a diuretic. However this diuretic failed to improve his symptoms and he presented to the emergency room for an evaluation. At our facility he was administered intravenous furosemide with improvement in his symptoms. The patient states that he had some abdominal fullness which appears to have improved this morning. He did not report peripheral edema. He has not had dizziness or lightheadedness. He has not endorse any symptoms of syncope. He has no symptoms of chest discomfort or chest tightness at rest or with exertion. He is able perform mild to moderate activity currently limited by dyspnea. He has been told that he has an irregularity in his heartbeat but is not aware of any palpitations. He does not follow low-sodium diet. He does monitor his blood pressure regularly. He states that generally speaking his systolic pressure is 120-130. He has not noticed any extreme elevations recently. It seems he was tried on higher doses of atenolol in the past with some side effects resulting in a dose reduction. Allergies Allergy/AdvReac Type Severity Reaction Status Date / Time No Known Allergies Allergy Unverified 08/27/19 23:35 Home Medications Home Medications Medication Instructions Recorded Confirmed Type omeprazole 20 mg capsule,delayed 20 mg PO DAILY #30 cap 07/24/19 08/29/19 Rx release psyllium 1 tsp PO DAILY 08/27/19 08/29/19 History lisinopril [Zestril] 5 mg PO QAM #30 tab 08/28/19 08/29/19 Rx metoprolol succinate 50 mg PO QAM #30 tab 08/28/19 08/29/19 Rx furosemide 40 mg tablet 40 mg PO DAILY PRN #30 tab 08/29/19 Rx Patient History Medical History (Updated 08/29/19 @ 00:02 by Teresa Thakkar) Dyslipidemia (Chronic) GERD (gastroesophageal reflux disease) Hypertension (Chronic) Surgical History No history of previous surgery Family History Brother Diabetes Other Colorectal cancer Denies family history of Ovarian cancer Prostate cancer Myocardial infarction Breast cancer Social History Preferred Language: Guamanian Communication Ability: Effective Visual Impairment: No Limitations Hearing Ability: Normal Beliefs That Will Affect Care: None marital status: Current Living Situation: Spouse current occupational status: 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 No lower extremity edema. Physical Exam Physical Exam: The patient is alert and oriented. Mood and affect appeared normal. He answered all questions appropriately. HEENT: Pupils are equal and reactive to light and accommodation. Extraocular movements are intact. The sclerae are anicteric. Neuro: Cranial nerves intact Neck: Patient's neck is supple. He has palpable carotid pulses bilaterally without bruits on auscultation. There is no evidence of jugular venous distention. The thyroid is not enlarged. Lungs: Clear to auscultation bilaterally. He has good air movement without use of accessory muscles. No rales wheezes or rhonchi. Cardiac: Heart demonstrates a regular rate and rhythm. Normal S1 and S2. No murmurs on examination. Pulses: The patient has palpable radial pulses bilaterally that are equal in intensity Extremities: There was no evidence of hypoperfusion. There is no cyanosis or clubbing. There is no edema. Skin: I did not appreciate any rashes on examination today. Results & Data ([facility]) Vital Signs (Past 12 Hours) Vital Signs Temp Pulse Pulse Resp BP BP Pulse Ox 08/28/19 07:28 68 08/28/19 07:00 36.5 C 64 18 122/86 96 08/28/19 03:00 36.5 C 87 83 18 152/104 H 93 08/28/19 02:08 87 20 147/104 H 96 08/28/19 01:24 81 20 147/107 H 96 08/28/19 00:16 90 20 157/116 H 93 08/27/19 23:55 73 18 154/113 H 95 08/27/19 23:19 93 H 20 151/106 H 96 08/27/19 22:59 36.6 C 94 H 18 189/132 H 95 Laboratory Results Abnormal Lab Results 08/27/19 08/27/19 08/27/19 23:10 23:10 23:10 WBC 8.91 RBC 5.44 Hgb 16.5 Hct 48.4 MCV 89.0 MCH 30.3 MCHC 34.1 RDW Std Deviation 42.0 RDW Coeff of Jonathan 13.0 Plt Count 268 MPV 10.4 Immature Gran % (Auto) 0.2 Neut % (Auto) 53.2 Lymph % (Auto) 34.3 [place] % (Auto) 9.8 Eos % (Auto) 2.2 Baso % (Auto) 0.3 Immature Gran # (Auto) 0.02 Neut # (Auto) 4.73 Lymph # (Auto) 3.06 [place] # (Auto) 0.87 H Eos # (Auto) 0.20 Baso # (Auto) 0.03 PT 12.5 H INR 1.2 H APTT 27.0 PTT Ratio 1.0 Sodium 141 Potassium 3.8 Chloride 109 H Carbon Dioxide 25 Anion Gap 7.0 BUN 17 Creatinine 0.94 Est Cr Clr Drug Dosing 106.8 Est GFR ( Amer) 105.4 Est GFR (Non-Af Amer) 90.9 BUN/Creatinine Ratio 18.5 Glucose 119 H Calcium 9.3 Magnesium 2.0 Total Bilirubin 1.3 H Direct Bilirubin 0.3 H AST 32 ALT 52 Alkaline Phosphatase 43 L Troponin I 0.050 H* NT-Pro-B Natriuret Pep 3646 H Total Protein 6.6 Albumin 3.8 08/28/19 08/28/19 05:56 05:56 WBC 9.03 RBC 5.40 Hgb 16.1 Hct 47.7 MCV 88.3 MCH 29.8 MCHC 33.8 RDW Std Deviation 41.7 RDW Coeff of Jonathan 13.0 Plt Count 254 MPV 10.4 Immature Gran % (Auto) 0.2 Neut % (Auto) 58.1 Lymph % (Auto) 28.5 [place] % (Auto) 11.0 Eos % (Auto) 1.6 Baso % (Auto) 0.6 Immature Gran # (Auto) 0.02 Neut # (Auto) 5.26 Lymph # (Auto) 2.57 [place] # (Auto) 0.99 H Eos # (Auto) 0.14 Baso # (Auto) 0.05 PT INR APTT PTT Ratio Sodium 141 Potassium 3.8 Chloride 107 Carbon Dioxide 29 Anion Gap 5.0 BUN 15 Creatinine 0.91 Est Cr Clr Drug Dosing 110.5 Est GFR ( Amer) 109.6 Est GFR (Non-Af Amer) 94.5 BUN/Creatinine Ratio 16.1 Glucose 105 H Calcium 8.7 Magnesium Total Bilirubin Direct Bilirubin AST ALT Alkaline Phosphatase Troponin I 0.051 H* NT-Pro-B Natriuret Pep Total Protein Albumin Diagnostic Findings Chest x-ray obtained at the time admission revealed some mild pulmonary edema. Cardiomegaly Echocardiogram performed today reveals dilated cardiomyopathy with [id number] mitral regurgitation ECG Additional Comments: Normal sinus rhythm with left bundle branch block and PVCs in a pattern of bigeminy PG Care Time/CCT Total # of Minutes Spent Total Time Spent with Patient: Total time spent is greater than 50% in coordination of care (as documented) at patient's floor/unit and/or counseling patient: Coding Level of Care Code 45728 Office/OBS Consult Lvl 5 Diagnoses Acute congestive heart failure I50.21 Heart failure type: systolic Elevated troponin R79.89 Cardiomyopathy I42.9 Hypertension I10 Left bundle branch block I44.7 Frequent PVCs I49.3 (1) Acute congestive heart failure Heart failure type: systolic Qualified Code(s): I50.21 - Acute systolic (congestive) heart failure
[2019-08-28] MEDS ORDERED: FUROSEMIDE 40 MG in SYRINGE 0 ML IV ONE (14:55)
--- NOTE | 2019-08-28 15:58 | Discharge Summary ---
Date of Service August 28, 2019 Admission HPI Per Admitting Provider 54 yo M with PMH dyslipidemia, HTN, likely RADHA, GERD presents to [facility] with concerns of worsening SOB. Initially started a couple of weeks ago, but worse this past week. Last episode of SOB back in July 2019 and CXR revealed cardiomegaly, atelectasis, and developing CHF. 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 Sxs improved quickly with with steroid taper, and thus SOB was attributed more so to chemical inhalation. PCP visit on 08/25/19 for increased SOB with exertion and being unable to sleep flat at night that required him to sleep in recliner. Sometimes waking up gasping and SOB. CXR at this visit indicated mild interstitial pulmonary edema and trace bilateral pleural effusions. Decision was made to start pt on Lasix 40mg daily, which he took for 2 days. Pt notes no real increase in urine output despite starting Lasix and ongoing SOB that is not improved. Tonight, he continued to have difficulty sleeping so he decided to come into ER. Associated feeling of a bdominal fullness and belching, but pt otherwise denies CP, diaphoresis, palpitations, syncope or near syncope, edema, cough, fever, chills, N/V/D, recent travel, lightheadedness/dizziness, urinary sxs . Pt notes his diet is not great with a lot of red meats and potatoes, does not really watch his sodium. Pt with no other acute concerns or complaints. CXR: Cardiomegaly w/ mild interstitial pulmonary edema and trace bilateral pleural effusions. Compared to 08/24, appears mildly worse. EKG: Bigemeny, PVCs. No acute ischemia Pertinent Labs: Trop 0.05, BNP 3646 ER Course: ASA 324 mg Family Hx: GF, Brother, Sister with 'heart disease' Social Hx: Denies tobacco use. Alcohol- ~10 beers/week. No illicit drug use Principal Diagnosis New onset, acute systolic CHF, dilated cardiomyopathy Discharge Exam Constitutional WD/WN, vitals as above Eyes PERRL, conjunctivae normal, anicteric sclerae ENMT external ear and nose normal, oropharynx normal Neck trachea midline, no thyromegaly Respiratory normal respiratory effort, lungs clear to auscultation Cardiovascular RRR, no murmur, no edema Chest (Breasts) Chest: normal inspection of chest Gastrointestinal (Abdomen) normal bowel sounds, soft, nontender, no hepatosplenomegaly Musculoskeletal Extremities: extremities normal to inspection; no cyanosis and no clubbing Skin no rashes, warm and dry Neurologic moves all extremities and awake; no focal motor deficits Psychiatric A+Ox3, euthymic affect Lymphatic no lymphedema Discharge Data Allergies Allergy/AdvReac Type Severity Reaction Status Date / Time No Known Allergies Allergy Unverified 08/27/19 23:35 Consultations 08/28/19 00:06 ED Decision to Admit Stat 08/28/19 02:53 Consult Cardiology Routine Ordered Studies CXR ECHO Hospital Course (1) Acute congestive heart failure: 54 yo M with PMH dyslipidemia, HTN, likely RADHA, GERD presents with c oncerns of worsening SOB and failed outpt tx with PO Lasix found to be mildly volume overloaded on CXR. Found to have cardiomyopathy with reduced EF of 25-30% on ECHO -CXR: Cardiomegaly w/ mild interstitial pulmonary edema and trace bilateral pleural effusions. Compared to 08/24, appears mildly worse. -BNP 3646 on admission -initial trop 0.05 and then remained stable at 0.051--> Likely 2/2 type II WI from CHF -failed outpt tx with Lasix 40mg -treated here with total of 2 doses of IV Lasix 40 mg and did very well--> improved orthopnea and was ambualting without dyspnea, no O2 required -Cardio consulted and offered cardiac cath but pt declined at this time, wanted to go home as was stable on medical therapy and follow up outpt with cath vs Nuc Stress. This is to be arranged with Cardiology as outpt to r/o ischemia as cause of CM -has frequent ventricular ectopy and LBBB--> could also be cause of CM -also had a viral illness a few months ago that took some time to get over-may also be viral CM -started Toprol XL and lisinopril for cardiomyopathy (dc home atenolol and HCTZ) -can take lasix po prn weight gain -will need close outpt Cardio follow up HTN -changed meds to metoprolol and lisinopril as above BPs controlled ?RADHA -h/o Snoring -PCP ordered Home sleep study and Sleep medicine referral made (2) Cardiomyopathy: (3) Frequent PVCs: (4) Left bundle branch block: (5) Hypertension: (6) Elevated troponin: (7) Snoring: (8) Dyslipidemia: (9) Hypertension: (10) GERD (gastroesophageal reflux disease): Total Time Total Time Spent Total Time Spent (In Minutes): 45 min Total Time Includes: Examination of the Patient, Discharge Planning, Medication Reconciliation and Communication With Other Providers (Cardiology) Discharge Plan Discharge Items Patient Disposition: Home - Self-Care Reason For Visit: SOB Discharge Diagnosis: New onset systolic congestive heart failure, Cardiomyopathy Condition on Discharge: Good Activity: As commented below Lifting: Gradually increase as tolerated Bathing: No limitations Exercise/Sports: Gradually increase as tolerated Driving/Machine Use: No limitations Non-emergency contact: Primary Care Provider and [employer] Salesperson Call non-emergency contact if: you have any medication questions and your symptoms worsen Follow-up/Referrals: Mireille David CRNP [Primary Care Provider] - (No follow up needed at this time.) Carlos Arias MD [Physician] - (Dr. Arias will arrange the follow up appointment.) Diet: Low Sodium (2gm) Fluids: 1800ml (7 cups) Addtl Attending Provider Instructions: You were admitted with shortness of breath and found to have congestive heart failure. You will eventually need a test to look for coronary artery disease, but this can be done as an outpatient with the [employer] Salesperson. You were started on Metoprolol and lisinopril as medications to help your heart get stronger again. You should STOP taking the atenolol. Please eat a low sodium diet and watch your fluid intake as limited above. Follow up with Dr. Arias in the Cardiology office-he will arrange this follow up appointment for you. Call your Primary Care doctor if any of the following symptoms or problems start or get worse: * Shortness of breath or difficulty breathing * Wake up at night short of breath * Chest pain * Cough * Swelling of your hands, feet, or legs * More fatigued or tired with your normal activity * Palpitations - sudden fast heart beats WEIGHT * Weigh yourself every morning after using the bathroom. * Use the same scale. * Wear the same amount of clothing. * Write your weight down on a chart. * Call your Primary Care doctor if you gain more than 2-3 pounds in 1-2 days. MEDICATIONS * Use this discharge instruction sheet for medication instructions. * Take your medications at the time your doctor ordered. * Do not skip a dose of your medicines. * If you miss a dose of medicine, take it as soon as possible, but DO NOT DOUBLE A DOSE. * Read your medicine information when you get home. * Know all of the side effects of your medicine. If in doubt, ask your pharmacist * Call your Primary Care doctor's office if you have any side effects. * Be sure all of your doctors know what medicine and herbs you take (including cold, flu, and herbal medicine). Take the following with you to your follow-up doctor appointments: * Weight Chart * Medication List * List of questions Do not drink excessive alcohol, beer or wine. Pending Studies at Discharge: No Stand-Alone Forms: My [facility] Medications and DC Order Prescriptions: New metoprolol succinate 50 mg Tablet Extended Release 24 Hr 50 mg PO QAM Qty: 30 RF: 0 lisinopril [Zestril] 5 mg Tablet 5 mg PO QAM Qty: 30 RF: 0 Continued omeprazole 20 mg capsule,delayed release(DR/EC) 20 mg PO DAILY Qty: 30 RF: 1 psyllium Powder 1 tsp PO DAILY RF: 0 Discontinued albuterol sulfate 90 mcg/actuation HFA aerosol inhaler 1 puffs INH QID PRN (Reason: shortness of breath or wheezing) Qty: 18 RF: 0 hydrochlorothiazide 25 mg tablet 25 mg PO DAILY Qty: 90 RF: 1 Hold Instructions: On Lasix for 5 days furosemide 40 mg tablet 40 mg PO DAILY Qty: 5 RF: 0 atenolol 25 mg tablet 25 mg PO DAILY Qty: 30 RF: 0 No Action furosemide 40 mg tablet 40 mg PO DAILY PRN (Reason: weight gain of 2-3 lbs) Qty: 30 RF: 0 Discharge Orders: Discharge Order (Routine); Ordered 08/28/19 Ordered By: Digna Blackwell Admission Data Admit Date/Time: 08/28/19 02:07 Attending Provider: Digna Blackwell Admit Provider: Naga Huff Primary Care Provider: Mireille David Other Providers: Carlos Arias Other Interventions: Discharge Summary Assessment (RN) Last Done: 08/28/19 16:31 DC Date/Time DO NOT enter until pt leaves facility: 08/28/19 17:00 Coding Level of Care Code 50202 OBS Care - Discharge Diagnoses Acute congestive heart failure I50.21 Heart failure type: systolic Cardiomyopathy I42.9 Frequent PVCs I49.3 Left bundle branch block I44.7 Hypertension I10 Elevated troponin R79.89 Snoring R06.83 Dyslipidemia E78.5 Hypertension I10 Hypertension type: essential hypertension GERD (gastroesophageal reflux disease) K21.9
--- NOTE | 2019-08-28 16:22 | Electrocardiogram Report ---
Test Reason : Blood Pressure : / mmHG Vent. Rate : 091 BPM Atrial Rate : 091 BPM P-R Int : 168 ms QRS Dur : 168 ms QT Int : 444 ms P-R-T Axes : 086 -81 097 degrees QTc Int : 546 ms Poor data quality, interpretation may be adversely affected Sinus rhythm with PVC in a pattern of bigeminy Left axis deviation Left bundle branch block Abnormal ECG No previous ECGs available Confirmed by Rene Arias ([id number]) on 08/28/2019 4:22:10 PM Referred By: REFERRED SELF Confirmed By:Damián Arias
[2019-08-28] MEDS ORDERED: lisinopriL 5 MG TAB PO SCH (17:00)
[2019-08-29] MEDS ORDERED: METOPROLOL SUCC 50MG EXT REL TAB PO SCH (09:00)
--- NOTE | 2019-08-29 23:19 | Billing Data ---
Date of Service August 29, 2019 Coding Level of Care Code 10812 Initial Inpt Care Lvl 3
== END 2019-08-28 17:00 | disposition home or self-care (01) ==
LOC: 2N 22:54 → ED 22:54 → SUATTDRO 08-28 02:07 → 2N 08-28 02:31
DX: K21.9 Gastro-esophageal reflux disease without esophagitis; E78.5 Hyperlipidemia, unspecified; R79.89 Other specified abnormal findings of blood chemistry; I50.21 Acute systolic (congestive) heart failure; I49.3 Ventricular premature depolarization; Z79.899 Other long term (current) drug therapy; I11.0 Hypertensive heart disease with heart failure; I44.7 Left bundle-branch block, unspecified; I42.9 Cardiomyopathy, unspecified